=== PATIENT | female | born 1985 | race Caucasian/White ===

== ENCOUNTER → 2016-12-27 | Outpatient (CLI) | payer OTHER ==
[~2016-12-27] MED LIST: BACL20TA; BCP; CARI350T27 PO; CEPH500C PO; DICY10CA26 PO; HYDR-3583 PO; HYDR-3714 PO; HYDR1CAP2; Hydrocodone Bit/Acetaminophen PO; IBP600T1 PO; LORA1TAB PO; MTH.2T PO; NAPR-243 PO; OXYC-12 PO; PREN1TAB14 PO; PREN1TAB25 PO; PRM25T PO; SULF-222 PO; TRM50T PO; [UNRECOGNIZED DRUG - SUPPLY]
--- NOTE | 2016-12-27 14:00 | Diagnostic Imaging Report ---
EXAMINATION: Bilateral breast ultrasound. INDICATION: Bilateral nipple discharge. Left breast pain. FINDINGS: The four-quadrants and retroareolar region of each breast were scanned with no underlying abnormality seen except for minimal duct ectasia in the retroareolar regions bilaterally. IMPRESSION: Minimal retroareolar ductal ectasia bilaterally. No focal mass is identified. If the nipple discharge persists, consider cytology evaluation and an MRI of the breast. ACR BI-RADS Category 2: Benign findings. Dictated by: Dictated on workstation # [id number]
--- NOTE | 2016-12-27 18:03 | Diagnostic Imaging Report ---
Bilateral diagnostic mammogram. The current study was also evaluated with a Computer Aided Detection (CAD) system. INDICATION: Bilateral nipple discharge and left breast lateral pain. FINDINGS: The breasts are composed of heterogeneously dense parenchyma which may decrease mammographic sensitivity. There is no mass, architectural distortion, or suspicious cluster of calcifications identified. IMPRESSION: Dense breast parenchyma with no definite focal underlying lesion. Ultrasound evaluation pending. ACR BI-RADS Category 0: Incomplete. (Needs additional imaging evaluation). Result letter will be mailed to the patient. Note: At least 10% of breast cancer is not imaged by mammography. Dictated by: Dictated on workstation # [id number]
== END ==
LOC: RAD 07:49
PROVIDERS: ATTEND Family Medicine
DX: N64.52 Nipple discharge (principal)
CPT/HCPCS: 77066

== ENCOUNTER 2020-08-19 08:51 | Emergency (ER) | payer BC, OTHER ==
[~2020-08-19] VITALS: Ht 165 cm; Wt 67.2 kg
[2020-08-19] MEDS ORDERED: fentaNYL INJECTION 100 MCG/2 ML AMP IVP ONE ×3 (09:45→14:00)
[2020-08-19] MEDS ORDERED: ONDANSETRON 4 MG/2 ML (SDV) Z0FRAN IVP ONE (09:45)
--- NOTE | 2020-08-19 10:10 | ED Abdominal Pain ---
General Chief Complaint: Abdominal/GI Problems Stated Complaint: POSSIBLE APPENDICITIS Nursing Triage Note: AMB TO ROOM FROM [facility] WAS SEEN FOR R LOWER QUAD PAIN ONSET YESTERDAY. REPORTS HER URINE DOES SMELL BUT NOT HAVING ANY OTHER SYNPTOMS. Sepsis Screen: No Definite Risk Source of Information: Patient Exam Limitations: No Limitations (DANDY VOSS) History of Present Illness Date Seen by Provider: Aug 19, 2020 Time Seen by Provider: 09:41 Initial Comments Tamia is a 35 y/o female that presents to ER with lower abdominal pain that started around 1pm yesterday. The pain is currently a 7/10 with radiation to epigastric region and bilateral shoulders and is characterized as a dull ache. She describes burning sensation over the shoulders and scapula. She has ass ociated nausea without vomiting and a metal smell to her urine. She tried a suppository for constipation but states it did not help and only caused her to have some diarrhea. Eating, moving and riding in the car makes it worse. Laying in bed still with heating pad has helped. Last time the tried eating or drinking was at 8:30pm on 08/18/2020. She denies the following: F/C, vomiting, SOB, chest pain, dysuria, incomplete emptying of urine, hematuria, blood in stool, vaginal discharge, risky sexual behavior. Patient is currently on DEPO and has not had a period in 7 years. No hx of kidney stones or other known GI pathology. Timing/Duration: 1 Day Severity/Quality: Mild, Moderate Location: RLQ, LLQ, Periumbilical Radiation: Scapula, Shoulder Activities at Onset: None Modifying Factors: Worsens With Eating, Worsens With Movement, Worsens With Palpation Associated Symptoms: Nausea/Vomiting (without vomiting) (DANDY VOSS) Allergies and Home Medications Allergies Coded Allergies: NKANo Known Allergies (Unverified Allergy, Mild, 01/01/09) No Known Drug Allergies (Verified , 04/30/08) Home Medications Hydrocodone/Acetaminophen 1 Each Tablet, 1 TAB PO Q6H PRN for PAIN-BREAKTHROUGH Prescribed by: JOSE DAVID FREED on 08/19/20 2390 Metronidazole 500 Mg Tablet, 500 MG PO BID Prescribed by: JOSE DAVID FREED on 08/19/20 3775 Patient Home Medication List Home Medication List Reviewed: Yes (JOSE DAVID CARBONE MD) Review of Systems Review of Systems Constitutional: no symptoms reported EENTM: No Symptoms Reported Respiratory: No Symptoms Reported Cardiovascular: No Symptoms Reported Gastrointestinal: Abdomen Distended, Abdominal Pain, Nausea, Poor Appetite Genitourinary: Denies Burning, Denies Hematuria; Other (metallic smell) Musculoskeletal: back pain Skin: no symptoms reported Psychiatric/Neurological: No Symptoms Reported Endocrine: No Symptoms Reported Other Comments (DANDY VOSS) Past Xvppsyt-Aawfut-Bjtoez Hx Patient Social History Alcohol Use: Occasionally Uses Smoking Status: Current Someday Smoker Recent Infectious Disease Expo: No Recent Hopitalizations: Yes (DANDY VOSS) Immunizations Up To Date Tetanus Booster (TDap): Unknown PED Vaccines UTD: No Date of Influenza Vaccine: Apr 03, 2012 (DANDY VOSS) Seasonal Allergies Seasonal Allergies: No (DANDY VOSS) Past Medical History Surgeries: Yes (WISDOM TEETH, D&C X2) Adenoidectomy, Tonsillectomy Respiratory: No Cardiac: No Neurological: No Reproductive Disorders: No Sexually Transmitted Disease: Yes HIV/AIDS: No Kidney Infection Gastrointestinal: No Musculoskeletal: No Endocrine: No Cancer: No Psychosocial: Yes Anxiety Integumentary: No Eczema Blood Disorders: No Adverse Reaction/Blood Tranf: No (DANDY VOSS) Family Medical History No Pertinent Family Hx (DANDY VOSS) Physical Exam Vital Signs Vital Signs - First Documented 08/19/20 08/19/20 08:58 16:21 Temp 36.2 Pulse 68 Resp 18 B/P (MAP) 111/62 (78) Pulse Ox 99 O2 Delivery Room Air (JOSE DAVID CARBONE MD) Vital Signs Capillary Refill : Less Than 3 Seconds (DANDY VOSS MED KARLA) Height/Weight/BMI Height: 5'6" Weight: 130lbs. oz. 58.552913qb; 24.00 BMI Method:Stated General Appearance: mild distress HEENT: PERRL/EOMI Neck: non-tender, full range of motion Respiratory: chest non-tender, lungs clear, normal breath sounds, no respiratory distress, no accessory muscle use Cardiovascular: normal peripheral pulses, regular rate, rhythm, no edema Peripheral Pulses: 2+ Dorsalis Pedis (R), 2+ Left Dors-Pedis (L), 2+ Radial Pulses (R), 2+ Radial Pulses (L) Gastrointestinal: rebound (Right LQ), tenderness (RLQ and LLQ, RLQ>LLQ) Extremities: no pedal edema, no calf tenderness Back: normal inspection, no CVA tenderness Neurologic/Psychiatric: alert, normal mood/affect, oriented x 3 Skin: normal color, warm/dry Lymphatic: no adenopathy Exam Comments + mcburneys,+Rosving, pain reproduced with right hip flexion, (-) for Lloyds sign. (DANDY VOSS [facility]) Progress/Results/Core Measures Results/Orders Lab Results Laboratory Tests Test 08/19/20 10:19 08/19/20 11:17 08/19/20 13:53 Range/Units White Blood Count 5.7 4.3-11.0 10^3/uL Red Blood Count 4.47 3.80-5.11 10^6/uL Hemoglobin 14.4 11.5-16.0 g/dL Hematocrit 43 35-52 % Mean Corpuscular Volume 96 80-99 fL Mean Corpuscular Hemoglobin 32 25-34 pg Mean Corpuscular Hemoglobin Concent 34 32-36 g/dL Red Cell Distribution Width 11.5 10.0-14.5 % Platelet Count 222 130-400 10^3/uL Mean Platelet Volume 8.9 L 9.0-12.2 fL Immature Granulocyte % (Auto) 0 % Neutrophils (%) (Auto) 57 42-75 % Lymphocytes (%) (Auto) 30 12-44 % Monocytes (%) (Auto) 11 0-12 % Eosinophils (%) (Auto) 1 0-10 % Basophils (%) (Auto) 0 0-10 % Neutrophils # (Auto) 3.3 1.8-7.8 10^3/uL Lymphocytes # (Auto) 1.7 1.0-4.0 10^3/uL Monocytes # (Auto) 0.6 0.0-1.0 10^3/uL Eosinophils # (Auto) 0.1 0.0-0.3 10^3/uL Basophils # (Auto) 0.0 0.0-0.1 10^3/uL Immature Granulocyte # (Auto) 0.0 0.0-0.1 10^3/uL Sodium Level 141 135-145 MMOL/L Potassium Level 3.8 3.6-5.0 MMOL/L Chloride Level 107 98-107 MMOL/L Carbon Dioxide Level 22 21-32 MMOL/L Anion Gap 12 5-14 MMOL/L Blood Urea Nitrogen 9 7-18 MG/DL Creatinine 0.85 0.60-1.30 MG/DL Estimat Glomerular Filtration Rate > 60 BUN/Creatinine Ratio 11 Glucose Level 94 70-105 MG/DL Calcium Level 9.1 8.5-10.1 MG/DL Corrected Calcium 8.9 8.5-10.1 MG/DL Total Bilirubin 0.5 0.1-1.0 MG/DL Aspartate Amino Transf (AST/SGOT) 13 5-34 U/L Alanine Aminotransferase (ALT/SGPT) 16 0-55 U/L Alkaline Phosphatase 52 40-136 U/L C-Reactive Protein High Sensitivity 0.32 0.00-0.50 MG/DL Total Protein 7.1 6.4-8.2 GM/DL Albumin 4.3 3.2-4.5 GM/DL Lipase 37 8-78 U/L Serum Test, Qualitative NEGATIVE NEGATIVE Urine Color YELLOW Urine Clarity CLEAR Urine pH 5.5 5-9 Urine Specific Gustine >=1.030 1.016-1.022 Urine Protein NEGATIVE NEGATIVE Urine Glucose (UA) NEGATIVE NEGATIVE Urine Ketones NEGATIVE NEGATIVE Urine Nitrite NEGATIVE NEGATIVE Urine Bilirubin NEGATIVE NEGATIVE Urine Urobilinogen 0.2 < = 1.0 MG/DL Urine Leukocyte Esterase NEGATIVE NEGATIVE Urine RBC (Auto) TRACE-I NEGATIVE Urine RBC 2-5 H /HPF Urine WBC 0-2 /HPF Urine Squamous Epithelial Cells 25-50 H /HPF Urine Crystals PRESENT H /LPF Urine Amorphous Sediment MOD ROBINSON URATES H /LPF Urine Bacteria MODERATE H /HPF Urine Casts NONE /LPF Urine Mucus SMALL H /LPF Urine Culture Indicated NO (JOSE DAVID CARBONE MD) Micro Results Microbiology 08/19/20 Genital Culture, Resulted Pending 08/19/20 Wet Prep - Final, Resulted (JOSE DAVID CARBONE MD) My Orders Orders - JOSE DAVID CARBONE MD Cbc With Automated Diff (08/19/20 09:33) Comprehensive Metabolic Panel (08/19/20 09:33) Hs C Reactive Protein (08/19/20 09:33) Hcg,Qualitative Serum (08/19/20 09:33) Lipase (08/19/20 09:33) Ua Culture If Indicated (08/19/20 09:33) Ed Iv/Invasive Line Start (08/19/20 09:33) Ondansetron Injection (Zofran Injectio (08/19/20 09:45) Fentanyl Injection (Sublimaze Injection (08/19/20 09:45) Fentanyl Injection (Sublimaze Injection (08/19/20 11:45) Ct Abd/Pelv W (Appendicitis) (08/19/20 11:41) Iohexol Injection (Omnipaque 350 Mg/Ml 1 (08/19/20 12:00) Received Contrast (Hold Metformin- Contr (08/19/20 12:00) Ns (Ivpb) (Sodium Chloride 0.9% Ivpb Bag (08/19/20 12:00) Sodium Chloride Flush (Catheter Flush Sy (08/19/20 12:00) Wet Prep (08/19/20 13:23) Neisseria Gonorrhea Swab (08/19/20 13:23) Genital Culture (08/19/20 13:23) Chlamydia Trachomatis Swab (08/19/20 13:23) Us Non Ob Pelvis Comp/Transvag (08/19/20 13:23) Fentanyl Injection (Sublimaze Injection (08/19/20 14:00) Fentanyl Injection (Sublimaze Injection (08/19/20 13:51) Ceftriaxone For Iv Use (Rocephin For I (08/19/20 15:45) Azithromycin Tablet (Zithromax Tablet) (08/19/20 15:45) Ketorolac Injection (Toradol Injection) (08/19/20 15:45) (JOSE DAVID CARBONE MD) Medications Given in ED Current Medications Medications Dose Ordered Sig/Conner Route Start Time Stop Time Status Last Admin Dose Admin Azithromycin 1,000 mg ONCE ONCE PO 08/19/20 15:45 08/19/20 15:46 DC 08/19/20 15:48 1,000 MG Ceftriaxone Sodium 1000 mg/ Sterile Water 10 ml @ 200 mls/hr ONCE ONCE IV 08/19/20 15:45 08/19/20 15:47 DC 08/19/20 15:50 200 MLS/HR Fentanyl Citrate 50 mcg ONCE ONCE IVP 08/19/20 09:45 08/19/20 09:46 DC 08/19/20 10:16 50 MCG Fentanyl Citrate 50 mcg ONCE ONCE IVP 08/19/20 11:45 08/19/20 11:46 DC 08/19/20 11:44 50 MCG Fentanyl Citrate 50 mcg ONCE ONCE IVP 08/19/20 14:00 08/19/20 14:01 DC 08/19/20 13:57 50 MCG Iohexol 100 ml ONCE ONCE IV 08/19/20 12:00 08/19/20 12:01 DC 08/19/20 12:11 84 ML Ketorolac Tromethamine 15 mg ONCE ONCE IVP 08/19/20 15:45 08/19/20 15:46 DC 08/19/20 15:49 15 MG Ondansetron HCl 8 mg ONCE ONCE IVP 08/19/20 09:45 08/19/20 09:46 DC 08/19/20 10:14 8 MG Sodium Chloride 10 ml NEEDED PRN IV 08/19/20 12:00 08/19/20 16:23 DC 08/19/20 12:11 10 ML Sodium Chloride 100 ml ONCE ONCE IV 08/19/20 12:00 08/19/20 12:01 RI 08/19/20 12:11 80 ML (JOSE DAVID CARBONE MD) Vital Signs/I&O 08/19/20 08/19/20 08:58 16:21 Temp 36.2 Pulse 68 77 Resp 18 18 B/P (MAP) 111/62 (78) 113/76 Pulse Ox 99 99 O2 Delivery Room Air (JOSE DAVID CARBONE MD) Blood Pressure Mean: 78 Progress Progress Note #1: Time: 09:44 Progress Note Discussed plan with patient: Ordered CBC with Diff, CMP, Lipase, B-HCG, UA. Waiting for results to guide additional workup. Ordered pain medication and Zofran for nausea. Discussed obtaining CT pending B-HCG. Patient is agreement with plan. Progress Note #2: Time: 11:15 Progress Note CBC and CMP unremarkable, B-HCG negative. Patient is tolerating pain better and nausea under control. Waiting on UA results. Progress Note #3: Time: 13:20 Progress Note UA negative. The CT was not concerning for acute appendicitis. CT was unable to elucidate ovary pathology, recommended U/S to further workup ovary pathology. Additionally, discussed fluid in pelvis and potential for IBD. Discussed the risk, benefits and alternatives in performing U/S and pelvic exam to rule out PID. She showed understanding and would like to proceed. Progress Note #4: Time: 13:55 Progress Note Pelvic exam performed in the presence of Tom Shant. External genitalia showed no abrasions, ulcers or growths. Labia majora and minora was inspected and showed no abnormalities. The vaginal introitus was entered, no abrasions, ulcers or discharge noted. There was no vaginal wall tenderness or erythema present. Healthy vaginal rugae noted. Cervix was examined and did not have abrasions or ulcers. White discharge was present in the posterior fornix which seemed physiologic in nature. Cotton tip applicator was introduced for culture collection. While sweeping cervix no tenderness was noted. Upon withdrawal of speculum no tenderness was noted. Digital vaginal exam was then performed, which showed no cervical motion tenderness. (DANDY VOSS [facility]) Diagnostic Imaging Diagonstic Imaging: Ultrasound Plain Films/CT/US/NM/MRI: pelvis Comments Ultrasound discussed with the alignment technician and Dr. Dickey. Report reviewed. See report below: NAME: TAMIA ACHARYA [facility] REC#: [id number] PT STATUS: REG ER : 1985 PHYSICIAN: JOSE DAVID CARBONE MD ADMIT DATE: 08/19/20/ER Signed Date of Exam:08/19/20 US NON OB PELVIS COMP/TRANSVAG PROCEDURE: Pelvic complete, transabdominal and transvaginal sonogram. Limited pelvic doppler. TECHNIQUE: Multiple real-time grayscale images were obtained of the pelvis in various projections transabdominally and transvaginally. Limited pelvic duplex images were obtained. HISTORY: Pelvic pain, Free fluid in pelvis on CT COMPARISON: None available. FINDINGS: Uterus: The uterus is anteverted and measures 5.5 x 2.7 x 3.8 cm. The myometrium is homogeneous without fibroids. Endometrium: The endometrium is normal in thickness and measures 0.2 cm. There is no fluid within the endometrial cavity. Adnexa: Both ovaries have a normal physiologic appearance. The right ovary measures 3.0 x 1.4 x 2.4 cm and the left ovary measures 2.3 x 1.8 x 2.1 cm. Duplex images reveal normal vascular flow to both ovaries. Other: There is no free fluid within the pelvis. Small bowel within the right lower quadrant with mild wall thickening, similar to prior CT from 08/19/2020. IMPRESSION: 1. Unremarkable pelvic ultrasound. Dictated by: Dictated on workstation # [id number] Dict: 08/19/20 1519 Trans: 08/19/20 1525 AS6 [id number] Interpreted by: ARYAN RAMIREZ DO Electronically signed by: ARYAN RAMIREZ DO 08/19/20 1525 Diagonstic Imaging: CT Plain Films/CT/US/NM/MRI: abdomen, pelvis Comments CT abdomen and pelvis viewed by me and report reviewed. Discussed with Dr. Dickey. See report below: NAME: TAMIA ACHARYA [facility] REC#: [id number] PT STATUS: REG ER : 1985 PHYSICIAN: JOSE DAVID CARBONE MD ADMIT DATE: 08/19/20/ER Signed Date of Exam:08/19/20 US NON OB PELVIS COMP/TRANSVAG PROCEDURE: Pelvic complete, transabdominal and transvaginal sonogram. Limited pelvic doppler. TECHNIQUE: Multiple real-time grayscale images were obtained of the pelvis in various projections transabdominally and transvaginally. Limited pelvic duplex images were obtained. HISTORY: Pelvic pain, Free fluid in pelvis on CT COMPARISON: None available. FINDINGS: Uterus: The uterus is anteverted and measures 5.5 x 2.7 x 3.8 cm. The myometrium is homogeneous without fibroids. Endometrium: The endometrium is normal in thickness and measures 0.2 cm. There is no fluid within the endometrial cavity. Adnexa: Both ovaries have a normal physiologic appearance. The right ovary measures 3.0 x 1.4 x 2.4 cm and the left ovary measures 2.3 x 1.8 x 2.1 cm. Duplex images reveal normal vascular flow to both ovaries. Other: There is no free fluid within the pelvis. Small bowel within the right lower quadrant with mild wall thickening, similar to prior CT from 08/19/2020. IMPRESSION: 1. Unremarkable pelvic ultrasound. Dictated by: Dictated on workstation # [id number] Dict: 08/19/20 1519 Trans: 08/19/20 1525 AS6 [id number] Interpreted by: ARYAN RAMIREZ DO Electronically signed by: ARYAN RAMIREZ DO 08/19/20 1525 (JOSE DAVID CARBONE MD) Departure Impression Primary Impression: Pelvic pain Additional Impressions: Free fluid in pelvis Bacterial vaginosis Disposition: HOME, SELF-CARE Condition: Improved Departure-Patient Inst. Decision time for Depature: 15:48 (JOSE DAVID CARBONE MD) Referrals: [facility] (PCP/Family) Primary Care Physician Patient Instructions: Bacterial Vaginosis, Pelvic Pain (DC) Add. Discharge Instructions: For pain you may take ibuprofen up to 600 mg every 6 hours as needed. If ibuprofen irritates her stomach, discontinue its use. For pain not controlled by ibuprofen take hydrocodone as prescribed. For upper abdominal pain you may try an antacid medication such as Pepcid (famotidine) 20 mg twice daily or omeprazole 20 mg twice daily. These are available [id number]. If you start an antacid medication, take it for at least 2 weeks to allow your stomach and opportunity to heal. Avoid food and drink that irritate your stomach. There was some evidence of bacterial vaginosis (bacterial overgrowth) on your vaginal swab. Take Flagyl (metronidazole) as prescribed for treatment of this. Do not drink alcohol while taking Flagyl. Follow-up with Dr. Enrique is soon as possible. Report to the findings of CT scan and ultrasound with him in follow-up. Also follow-up with your women's health provider. Based on your symptoms and imaging results, it may be appropriate to seek referral to a dispensing and measuring optician or general surgeon for further evaluation. Call with questions or concerns. Return to the emergency room for worsening symptoms or development of new symptoms such as fever. All discharge instructions reviewed with patient and/or family. Voiced understanding. Scripts Hydrocodone/Acetaminophen (Hydrocodone-Acetamin 5-325 mg) 1 Each Tablet 1 TAB PO Q6H PRN for PAIN-BREAKTHROUGH, #10 TAB Prov: JOSE DAVID CARBONE MD 08/19/20 Metronidazole (Flagyl) 500 Mg Tablet 500 MG PO BID, #14 TAB Prov: JOSE DAVID CARBONE MD 08/19/20 Work/School Note: Work Release Form Date Seen in the Emergency Department: Aug 19, 2020 Return to Work: Aug 21, 2020 Restrictions: No Restrictions Medical Student Attestation and Attending Note: I have personally interviewed and examined this patient along with Dandy Arguello, MS 4. I have reviewed student documentation including history, physical, and assessments. I agree with the documentation except where otherwise noted. This patient's case was a little bit complicated. Exam was suspicious for appendicitis with peritoneal signs. Risks and benefits of CT were discussed with the patient. She elected to proceed with CT. No appendicitis was identified but there was free fluid in the right posterior pelvis. The exact cause of this was uncertain. There was associated inflammatory change of the ileum. Patient did describe a history of worsening symptoms with eating. There is Crohn's disease in multiple family members. She also reports a relative intolerance to grain products. I advised that she follow-up with her dietitian research and possibly a dispensing and measuring optician or a general surgeon. Pelvic exam was performed and there was a significant quantity of white blood cells on the preliminary swab. For this reason she was empirically treated with Rocephin and azithromycin. She reports having STI screening about a month ago after becoming sexually active with a new partner. She denies any new partner since then. Pain was treated with fentanyl. Medications were prescribed. Clue cells were present on the pelvic exam prompting treatment with Flagyl for bacterial vaginosis. Definitive diagnosis was not determined today at the importance of follow-up was stressed to the patient. Exam: General: Alert, oriented, no acute distress, well developed HEENT: Normocephalic and atraumatic Heart: Regular rate and rhythm without murmur Lungs: Clear to auscultation bilaterally with normal effort Abdomen: Soft, Tenderness in the lower quadrants, right greater than left. Positive Rovsing and tenderness to percussion. nondistended, normal bowel sounds Pelvic: Normal external genitalia. Large amount of white discharge, physiologic in appearance. No inflammatory changes to the vaginal wall or cervix. No cervical motion tenderness On digital exam. Neuropsych: Alert, oriented, no focal deficits Skin: Warm and dry without rashes (JOSE DAVID CARBONE MD) Copy Copies To 1: DEBRA GARVIN BRANDON [facility] Aug 19, 2020 10:10 JOSE DAVID CARBONE MD Aug 19, 2020 15:53
[2020-08-19 10:28] LABS: BASOPHILS % (AUTO) 0 % (0-10); EOSINOPHILS # (AUTO) 0.1 10^3/uL (0.0-0.3); EOSINOPHILS % (AUTO) 1 % (0-10); HEMATOCRIT 43 % (35-52); HEMOGLOBIN 14.4 g/dL (11.5-16.0); LYMPHOCYTES # (AUTO) 1.7 10^3/uL (1.0-4.0); LYMPHOCYTES % (AUTO) 30 % (12-44); MEAN CORPUSCULAR HEMOGLOBIN 32 pg (25-34); MEAN CORPUSCULAR HGB CONC 34 g/dL (32-36); MEAN CORPUSCULAR VOLUME 96 fL (80-99); MEAN PLATELET VOLUME 8.9 fL (9.0-12.2); MONOCYTES # (AUTO) 0.6 10^3/uL (0.0-1.0); MONOCYTES % (AUTO) 11 % (0-12); NEUTROPHILS # (AUTO) 3.3 10^3/uL (1.8-7.8); NEUTROPHILS % (AUTO) 57 % (42-75); PLATELET COUNT 222 10^3/uL (130-400); WHITE BLOOD COUNT 5.7 10^3/uL (4.3-11.0)
[2020-08-19 10:42] LABS: ALBUMIN 4.3 GM/DL (3.2-4.5); CHLORIDE 107 MMOL/L (98-107); POTASSIUM 3.8 MMOL/L (3.6-5.0); SODIUM 141 MMOL/L (135-145)
[2020-08-19 10:43] LABS: CALCIUM 9.1 MG/DL (8.5-10.1)
[2020-08-19 10:44] LABS: GLUCOSE 94 MG/DL (70-105)
[2020-08-19 10:45] LABS: TOTAL PROTEIN 7.1 GM/DL (6.4-8.2)
[2020-08-19 10:46] LABS: BILIRUBIN,TOTAL 0.5 MG/DL (0.1-1.0); CARBON DIOXIDE 22 MMOL/L (21-32)
[2020-08-19 10:48] LABS: ALKALINE PHOSPHATASE 52 U/L (40-136); CREATININE SERUM 0.85 MG/DL (0.60-1.30); GFR ESTIMATED > 60
[2020-08-19 10:49] LABS: BUN/CREATININE RATIO 11
[2020-08-19 10:51] LABS: ALANINE AMINOTRANSFERASE 16 U/L (0-55); LIPASE 37 U/L (8-78)
[2020-08-19 11:23] LABS: BILIRUBIN,URINE NEGATIVE (NEGATIVE); CLARITY,URINE CLEAR; COLOR,URINE YELLOW; GLUCOSE, URINE (UA) NEGATIVE (NEGATIVE); KETONES,URINE NEGATIVE (NEGATIVE); LEUKOCYTE ESTERASE ,URINE NEGATIVE (NEGATIVE); NITRITE,URINE NEGATIVE (NEGATIVE); PH,URINE 5.5 (5-9); PROTEIN,URINE NEGATIVE (NEGATIVE)
[2020-08-19 11:31] LABS: BACTERIA,URINE MODERATE /HPF; SQUAMOUS EPITHELIAL CELL,UR 25-50 /HPF; WBC,URINE 0-2 /HPF
[2020-08-19 11:32] LABS: AMORPHOUS SEDIMENT,UR MOD AMOR URATES /LPF
[2020-08-19] MEDS ORDERED: IOHEXOL 350 MG/ML 100 ML (OMNIPAQUE 350) VIAL IV ONE (12:00)
[2020-08-19] MEDS ORDERED: CATHETER FLUSH 10 ML SYR IV PRN (12:00)
[2020-08-19] MEDS ORDERED: HOLD METFORMIN - RECEIVED CONTRAST 20 ML VIAL IV SCH (12:00)
[2020-08-19] MEDS ORDERED: NS 100 ML (IVPB) BAG IV ONE (12:00)
--- NOTE | 2020-08-19 12:50 | Diagnostic Imaging Report ---
PROCEDURE: CT abdomen and pelvis with contrast, rule out appendicitis. TECHNIQUE: Multiple contiguous axial images were obtained through the abdomen and pelvis after the administration of intravenous contrast. All CT scans use one or more of the following dose optimizing techniques: automated exposure control, MA and/or KvP adjustment based on patient size and exam type or iterative reconstruction. INDICATION: Right lower quadrant pain, nausea. COMPARISON: Abdominal pelvic CT 02/15/2007 Structure believed to reflect the normal appendix medial to the right iliac vein is present. No adjacent edema. No findings of appendicitis. There is however some circumferential thickening of the lauren of the distal small bowel through the level of the terminal ileum in the right lower quadrant. This could be reflux ileitis, on an infectious basis or reflect changes of inflammatory bowel disease. No obstruction, perforation or abscess. There is a small volume pelvic free fluid of the cul-de-sac. The liver, gallbladder, bile ducts, spleen, adrenals, pancreas and unobstructed kidneys appeared normal. No pathological fecal loading. The urinary bladder is nearly empty. No adnexal lesion. The uterus unremarkable. IMPRESSION: No findings to suggest appendicitis. Nonfocal unobstructed urinary tracts with no hepatobiliary abnormality. Small volume pelvic free fluid may be physiologic. New thickening of the lauren of the distal ileum in the right lower quadrant may be from reflux ileitis on an infectious basis or reflect inflammatory bowel disease. No other segmental enteric inflammatory changes are found. No perforation, obstruction or abscess. Dictated by: Dictated on workstation # [id number]
[2020-08-19] MEDS ORDERED: fentaNYL INJECTION 100 MCG/2 ML AMP ONE (13:51)
--- NOTE | 2020-08-19 15:25 | Diagnostic Imaging Report ---
PROCEDURE: Pelvic complete, transabdominal and transvaginal sonogram. Limited pelvic doppler. TECHNIQUE: Multiple real-time grayscale images were obtained of the pelvis in various projections transabdominally and transvaginally. Limited pelvic duplex images were obtained. HISTORY: Pelvic pain, Free fluid in pelvis on CT COMPARISON: None available. FINDINGS: Uterus: The uterus is anteverted and measures 5.5 x 2.7 x 3.8 cm. The myometrium is homogeneous without fibroids. Endometrium: The endometrium is normal in thickness and measures 0.2 cm. There is no fluid within the endometrial cavity. Adnexa: Both ovaries have a normal physiologic appearance. The right ovary measures 3.0 x 1.4 x 2.4 cm and the left ovary measures 2.3 x 1.8 x 2.1 cm. Duplex images reveal normal vascular flow to both ovaries. Other: There is no free fluid within the pelvis. Small bowel within the right lower quadrant with mild wall thickening, similar to prior CT from 08/19/2020. IMPRESSION: 1. Unremarkable pelvic ultrasound. Dictated by: Dictated on workstation # [id number]
[2020-08-19] MEDS ORDERED: AZITHROMYCIN 250 MG TAB (ZITHROMAX) PO ONE (15:45)
[2020-08-19] MEDS ORDERED: cefTRIAXone FOR IV USE 1,000 MG in WATER (STERILE) FOR INJECTION 10 ML IV ONE (15:45)
[2020-08-19] MEDS ORDERED: KETOROLAC 30 MG/ML VIAL IVP ONE (15:45)
[2020-08-19] MEDS ORDERED: METR500T PO (15:53)
[2020-08-19] MEDS ORDERED: ACHD5005 PO (15:53)
[2020-08-19 16:21] VITALS: BP 113/76
== END 2020-08-19 16:22 | disposition home or self-care (01) ==
LOC: EDUNIT# 08:51 → ER 08:52
DX: N76.0 Acute vaginitis (principal); R18.8 Other ascites
CPT/HCPCS: 36415; 74177; 76830; 76856; 80053; 81000; 83690; 84703; 85025; 86141; 87070; 87205; 87210; 87491; 87591

== ENCOUNTER → 2021-04-01 | Outpatient (CLI) | payer BC ==
[~2021-04-01] MED LIST changes: +ACHD5005 PO; +METR500T PO
--- NOTE | 2021-04-01 08:33 | Diagnostic Imaging Report ---
PROCEDURE: CT abdomen and pelvis without contrast. TECHNIQUE: Multiple contiguous axial images were obtained through the abdomen and pelvis without the use of intravenous contrast. Auto Exposure Controls were utilized during the CT exam to meet ALARA standards for radiation dose reduction. INDICATION: Right-sided flank pain and urinary tract infections. Correlation is made with prior CT from 08/19/2020. The lung bases are clear. The liver is unremarkable. Gallbladder is contracted. No biliary duct dilatation is seen. Pancreas and spleen are unremarkable. No adrenal masses detected. No renal calculi are identified. Bladder is unremarkable. No definite bladder calculi are seen. There is no hydronephrosis. Aorta is non-aneurysmal. Bowel loops are normal caliber. There is no obstruction. No free fluid or fluid collection is seen. Uterus is unremarkable. Bony structures are unremarkable. IMPRESSION: Unremarkable noncontrast CT of the abdomen and pelvis. No urinary tract calculi or obstruction is identified. Dictated by: Dictated on workstation # [id number]
== END ==
LOC: RAD 07:48
PROVIDERS: ATTEND Nurse Practitioner Family
DX: N39.0 Urinary tract infection, site not specified (principal)
CPT/HCPCS: 74176

== ENCOUNTER 2022-05-19 10:17 | Emergency (ER) | payer BC, OTHER ==
[~2022-05-19] VITALS: Ht 167.7 cm; Wt 72.5 kg
[2022-05-19 10:55] LABS: BASOPHILS % (AUTO) 0 % (0-10); EOSINOPHILS % (AUTO) 1 % (0-10); HEMATOCRIT 46 % (35-52); HEMOGLOBIN 15.7 g/dL (11.5-16.0); LYMPHOCYTES # (AUTO) 1.9 10^3/uL (1.0-4.0); LYMPHOCYTES % (AUTO) 26 % (12-44); MEAN CORPUSCULAR HEMOGLOBIN 32 pg (25-34); MEAN CORPUSCULAR HGB CONC 34 g/dL (32-36); MEAN CORPUSCULAR VOLUME 94 fL (80-99); MEAN PLATELET VOLUME 8.9 fL (9.0-12.2); MONOCYTES # (AUTO) 0.6 10^3/uL (0.0-1.0); MONOCYTES % (AUTO) 8 % (0-12); NEUTROPHILS # (AUTO) 4.9 10^3/uL (1.8-7.8); NEUTROPHILS % (AUTO) 65 % (42-75); PLATELET COUNT 240 10^3/uL (130-400); WHITE BLOOD COUNT 7.5 10^3/uL (4.3-11.0)
[2022-05-19 11:01] LABS: PROTHROMBIN TIME PATIENT 13.2 SEC (12.2-14.7)
[2022-05-19 11:02] LABS: ALBUMIN 4.5 GM/DL (3.2-4.5); POTASSIUM 3.7 MMOL/L (3.6-5.0)
[2022-05-19 11:04] LABS: CALCIUM 9.5 MG/DL (8.5-10.1)
[2022-05-19 11:05] LABS: TOTAL PROTEIN 7.3 GM/DL (6.4-8.2)
[2022-05-19 11:07] LABS: BILIRUBIN,TOTAL 0.7 MG/DL (0.1-1.0)
[2022-05-19 11:08] LABS: CREATININE SERUM 0.82 MG/DL (0.60-1.30)
[2022-05-19 11:11] LABS: MAGNESIUM 1.9 MG/DL (1.6-2.4)
[2022-05-19] MEDS ORDERED: ANTACID SUSP 30 ML UDC (MYLANTA) PO ONE (11:30)
[2022-05-19] MEDS ORDERED: ONDANSETRON 4 MG/2 ML (SDV) Z0FRAN IVP ONE ×2 (11:30→12:45)
[2022-05-19] MEDS ORDERED: LIDOCAINE 2% VISCOUS 15 ML UDC PO ONE (11:30)
--- NOTE | 2022-05-19 11:43 | Diagnostic Imaging Report ---
CHEST 1 VIEW, AP/PA ONLY Indication: Chest pain. Comparison: 07/01/2012 Findings: No focal airspace disease in the visualized lungs. No pleural effusion or pneumothorax. Normal cardiomediastinal silhouette. Impression: 1. No acute cardiopulmonary process by portable radiography. Dictated by: Dictated on workstation # [id number]
[2022-05-19] MEDS ORDERED: QUET25TA PO (13:23)
--- NOTE | 2022-05-19 13:26 | ED Chest Pain ---
General Chief Complaint: Chest Pain Stated Complaint: CHEST PAINS Nursing Triage Note: STATES SHE IS FEELING CHEST PAIN INTERMITTANTLY SINCE YESTERDAY MORNING. NOW IS CONSTANT WITH RATING OF A 6/10. Source: patient Exam Limitations: no limitations History of Present Illness Date Seen by Provider: May 19, 2022 Time Seen by Provider: 10:21 Initial Comments This 36-year-old woman presents to the emergency room with complaints of palpitations, anxiety, and chest discomfort. She has slept very poorly over the past 2 days and feels very thirsty. She describes her chest discomfort as a tightness or sometimes a dull tingling. It radiates into her left arm. The sensation was more heavy this morning. She has had panic attacks in the past but reports that this feels different than a panic attack. She also describes a sensation of a knot in her throat. Her palpitations feel like a flipping sensation intermittently. She denies any recent medication additions or changes. She is not presently treated for anxiety. She denies as she had a Depo-Provera shot yesterday and had a negative test at that time. She was seen in the clinic today and had a negative COVID-19 test. She p resently rates her pain as 5/10. She has had a loss of appetite. Pain does not change with eating or drinking. Her primary care provider is Mena Marshall at [facility]. Allergies and Home Medications Allergies Coded Allergies: NKANo Known Allergies (Unverified Allergy, Mild, 01/01/09) No Known Drug Allergies (Verified , 04/30/08) Patient Home Medication List Home Medication List Reviewed: Yes Hydrocodone/Acetaminophen (Hydrocodone-Acetamin 5-325 mg) 1 Each Tablet, 1 TAB PO Q6H PRN for PAIN-BREAKTHROUGH Prescribed by: JOSE DAVID FREED on 08/19/20 1554 Metronidazole (Flagyl) 500 Mg Tablet, 500 MG PO BID Prescribed by: JOSE DAVID FREED on 08/19/20 1553 Quetiapine Fumarate (Seroquel) 25 Mg Tablet, 25 MG PO HS Prescribed by: JOSE DAVID FREED on 05/19/22 1323 Review of Systems Review of Systems Constitutional: see HPI EENTM: No Symptoms Reported Respiratory: See HPI Cardiovascular: See HPI Gastrointestinal: No Symptoms Reported Genitourinary: No Symptoms Reported Musculoskeletal: muscle stiffness Skin: no symptoms reported Psychiatric/Neurological: See HPI Endocrine: No Symptoms Reported Hematologic/Lymphatic: No Symptoms Reported Past Cisxtcr-Gznzoq-Cdjjky Hx Patient Social History Tobacco Use?: Yes Tobacco type used: Cigarettes Smoking Status: Current Everyday Smoker Use of E-Cig and/or Vaping dev: No Substance use?: No Alcohol Use?: Yes Alcohol type: Beer, Hard Liquor, Wine Alcohol Frequency: Once in a while Immunizations Up To Date Tetanus Booster (TDap): Unknown PED Vaccines UTD: No Influenza Vaccine Up-to-Date: No; Not Current First/Initial COVID19 Vaccinat: 2020 Second COVID19 Vaccination Ervin: 2020 Seasonal Allergies Seasonal Allergies: No Past Medical History Surgery/Hospitalization HX: ANXIETY SURGERY WISDOM TEETH , TONSILS, D&C Surgeries: Yes (WISDOM TEETH, D&C X2) Adenoidectomy, Tonsillectomy Respiratory: No Cardiac: No Neurological: No Reproductive Disorders: No Sexually Transmitted Disease: Yes HIV/AIDS: No Kidney Infection Gastrointestinal: No Musculoskeletal: No Endocrine: No Cancer: No Psychosocial: Yes Anxiety Integumentary: No Eczema Blood Disorders: No Adverse Reaction/Blood Tranf: No Family Medical History No Pertinent Family Hx Physical Exam Vital Signs Vital Signs - First Documented 05/19/22 10:20 Temp 36.6 Pulse 71 Resp 18 B/P (MAP) 128/88 (101) Pulse Ox 100 O2 Delivery Room Air Capillary Refill : Less Than 3 Seconds Height, Weight, BMI Height: 5'6" Weight: 130lbs. oz. 58.331248rr; 25.00 BMI Method:Stated General Appearance: WD/WN, Anxious, Mild Distress (Emotional) HEENT: PERRL/EOMI, Normal ENT Inspection Neck: Normal Inspection; No JVD; Other (Muscle tension and tenderness in the left paraspinous muscles and trapezius muscles) Respiratory: Lungs Clear, Normal Breath Sounds, No Accessory Muscle Use, Other (Left upper anterior chest tender to palpation) Cardiovascular: Regular Rate, Rhythm, No Edema, No Murmur Gastrointestinal: Normal Bowel Sounds, Non Tender, Soft Extremity: Normal Inspection, No Pedal Edema Neurologic/Psychiatric: Alert, Oriented x3, No Motor/Sensory Deficits, Normal Mood/Affect, 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 II-XII Norm as Tested Skin: Normal Color, Warm/Dry Progress/Results/Core Measures Results/Orders Lab Results Laboratory Tests Test 05/19/22 10:25 Range/Units White Blood Count 7.5 4.3-11.0 10^3/uL Red Blood Count 4.91 3.80-5.11 10^6/uL Hemoglobin 15.7 11.5-16.0 g/dL Hematocrit 46 35-52 % Mean Corpuscular Volume 94 80-99 fL Mean Corpuscular Hemoglobin 32 25-34 pg Mean Corpuscular Hemoglobin Concent 34 32-36 g/dL Red Cell Distribution Width 11.7 10.0-14.5 % Platelet Count 240 130-400 10^3/uL Mean Platelet Volume 8.9 L 9.0-12.2 fL Immature Granulocyte % (Auto) 0 % Neutrophils (%) (Auto) 65 42-75 % Lymphocytes (%) (Auto) 26 12-44 % Monocytes (%) (Auto) 8 0-12 % Eosinophils (%) (Auto) 1 0-10 % Basophils (%) (Auto) 0 0-10 % Neutrophils # (Auto) 4.9 1.8-7.8 10^3/uL Lymphocytes # (Auto) 1.9 1.0-4.0 10^3/uL Monocytes # (Auto) 0.6 0.0-1.0 10^3/uL Eosinophils # (Auto) 0.0 0.0-0.3 10^3/uL Basophils # (Auto) 0.0 0.0-0.1 10^3/uL Immature Granulocyte # (Auto) 0.0 0.0-0.1 10^3/uL Prothrombin Time 13.2 12.2-14.7 SEC INR Comment 1.0 0.8-1.4 Activated Partial Thromboplast Time 26 24-35 SEC Sodium Level 138 135-145 MMOL/L Potassium Level 3.7 3.6-5.0 MMOL/L Chloride Level 105 98-107 MMOL/L Carbon Dioxide Level 22 21-32 MMOL/L Anion Gap 11 5-14 MMOL/L Blood Urea Nitrogen 10 7-18 MG/DL Creatinine 0.82 0.60-1.30 MG/DL Estimat Glomerular Filtration Rate 94 BUN/Creatinine Ratio 12 Glucose Level 93 70-105 MG/DL Calcium Level 9.5 8.5-10.1 MG/DL Corrected Calcium 9.1 8.5-10.1 MG/DL Magnesium Level 1.9 1.6-2.4 MG/DL Total Bilirubin 0.7 0.1-1.0 MG/DL Aspartate Amino Transf (AST/SGOT) 17 5-34 U/L Alanine Aminotransferase (ALT/SGPT) 22 0-55 U/L Alkaline Phosphatase 49 40-136 U/L Myoglobin 39.6 10.0-92.0 NG/ML Troponin I < 0.028 <0.028 NG/ML Total Protein 7.3 6.4-8.2 GM/DL Albumin 4.5 3.2-4.5 GM/DL TSH [place] Testing 1.34 0.35-4.94 UIU/ML Serum Test, Qualitative NEGATIVE NEGATIVE My Orders Orders - JOSE DAVID CARBONE MD Ekg Tracing (05/19/22 10:20) Cbc With Automated Diff (05/19/22 10:49) Magnesium (05/19/22 10:49) Chest 1 View, Ap/Pa Only (05/19/22 10:49) Comprehensive Metabolic Panel (05/19/22 10:49) Myoglobin Serum (05/19/22 10:49) Protime With Inr (05/19/22 10:49) Partial Thromboplastin Time (05/19/22 10:49) O2 (05/19/22 10:49) Monitor-Rhythm Ecg Trace Only (05/19/22 10:49) Ed Iv/Invasive Line Start (05/19/22 10:49) Troponin I [place] (05/19/22 10:49) Hcg,Qualitative Serum (05/19/22 11:28) Thyroid Analyzer (05/19/22 11:29) Ondansetron Injection (Zofran Injectio (05/19/22 11:30) Lidocaine 2% Viscous 15 Ml (Xylocaine Vi (05/19/22 11:30) Antacid Suspension (Mylanta Suspension (05/19/22 11:30) Ondansetron Injection (Zofran Injectio (05/19/22 12:45) Orphenadrine Inj (Ed Only) (Norflex Inje (05/19/22 13:30) Ketorolac Injection (Toradol Injection) (05/19/22 13:30) Medications Given in ED Current Medications Medications Dose Ordered Sig/Conner Route Start Time Stop Time Status Last Admin Dose Admin Al Hydrox/Mg Hydrox/Simethicone 30 ml ONCE ONCE PO 05/19/22 11:30 05/19/22 11:31 DC 05/19/22 11:37 30 ML Ketorolac Tromethamine 30 mg ONCE ONCE IVP 05/19/22 13:30 05/19/22 13:31 DC 05/19/22 13:39 30 MG Lidocaine HCl 15 ml ONCE ONCE PO 05/19/22 11:30 05/19/22 11:31 DC 05/19/22 11:37 15 ML Ondansetron HCl 4 mg ONCE ONCE IVP 05/19/22 11:30 05/19/22 11:31 DC 05/19/22 11:37 4 MG Ondansetron HCl 4 mg ONCE ONCE IVP 05/19/22 12:45 05/19/22 12:46 DC 05/19/22 12:43 4 MG Orphenadrine Citrate 60 mg ONCE ONCE IV 05/19/22 13:30 05/19/22 13:31 DC 05/19/22 13:37 60 MG Vital Signs/I&O 05/19/22 05/19/22 10:20 14:46 Temp 36.6 36.6 Pulse 71 70 Resp 18 18 B/P (MAP) 128/88 (101) 85/88 Pulse Ox 100 100 O2 Delivery Room Air Room Air Blood Pressure Mean: 101 Progress Progress Note : Progress Note Work-up was unremarkable. GI cocktail did not resolve her pain. Toradol and Norflex did significantly improve her pain. She appears to have a significant mental health component to her symptoms with anxiety and insomnia. See discharge instructions for further discussion. Initial ECG Impression Date: May 19, 2022 Initial ECG Impression Time: 10:26 Initial ECG Rate: 67 Initial ECG Rhythm: Normal Sinus Initial ECG Intervals: Normal Initial ECG Impression: Normal Comment Normal sinus rhythm with no ST elevation or depression. No abnormal intervals or axis deviation. Diagnostic Imaging Diagonstic Imaging: Xray Plain Films/CT/US/NM/MRI: chest Comments NAME: TAMIA ACHARYA MED REC#: [id number] PT STATUS: REG ER : 1985 PHYSICIAN: JOSE DAVID CARBONE MD ADMIT DATE: 05/19/22/ER Signed Date of Exam:05/19/22 CHEST 1 VIEW, AP/PA ONLY CHEST 1 VIEW, AP/PA ONLY Indication: Chest pain. Comparison: 07/01/2012 Findings: No focal airspace disease in the visualized lungs. No pleural effusion or pneumothorax. Normal cardiomediastinal silhouette. Impression: 1. No acute cardiopulmonary process by portable radiography. Dictated by: Dictated on workstation # [id number] Dict: 05/19/22 1141 Trans: 05/19/22 1141 [facility] [id number] Interpreted by: ANDREA MCDONOUGH MD Electronically signed by: ANDREA MCDONOUGH MD 05/19/22 1141 Departure Impression Primary Impression: Atypical chest pain Additional Impressions: Anxiety Insomnia Qualified Codes: G47.00 - Insomnia, unspecified Globus pharyngeus Muscle tension pain Disposition: HOME, SELF-CARE Condition: Improved Departure-Patient Inst. Decision time for Depature: 13:20 Referrals: [facility] (PCP/Family) Primary Care Physician Patient Instructions: Anxiety, Adult ED, Chest Pain That Is Not Caused by the Heart (DC), Insomnia Add. Discharge Instructions: Follow-up with your primary care provider soon as possible. For insomnia you may try the Seroquel as prescribed. If the dose is insufficient, work with your primary care provider to adjust dosing. Do not mix with other sleep aids until otherwise discussed with your doctor. Focus on healthy means of stress reduction and coping. This may include light exercise, healthy eating, conversation with supportive people, counseling, etc. Drink plenty of clear liquids to stay well-hydrated. For muscle pain you may try gentle heat such as a heating pad on low or a warm bath or shower. You may use Tylenol (acetaminophen) up to 1000 mg every 6 hours as needed for musculoskeletal pain. Add ibuprofen up to 600 mg every 6 hours as needed for additional pain relief. Take ibuprofen with food or milk to avoid stomach upset. If you are concerned about acid reflux as a possible cause for your throat sensation (globus pharyngeus) you may try taking an antacid medication such as Pepcid (famotidine) 20 mg twice daily or omeprazole 20 mg daily. These can be purchased [id number]. Return to care if you have worsening symptoms despite following these instructions. All discharge instructions reviewed with patient and/or family. Voiced understanding. Scripts Quetiapine Fumarate (Seroquel) 25 Mg Tablet 25 MG PO HS, #10 TAB Prov: JOSE DAVID CARBONE MD 05/19/22 Copy Copies To 1: [facility] JOSE DAVID CARBONE MD May 19, 2022 13:25
[2022-05-19] MEDS ORDERED: KETOROLAC 30 MG/ML VIAL IVP ONE (13:30)
[2022-05-19] MEDS ORDERED: ORPHENADRINE 60 MG/2 ML (NORFLEX) AMP (ED ONLY) IV ONE (13:30)
[2022-05-19 14:46] VITALS: BP 85/88
== END 2022-05-19 14:46 | disposition home or self-care (01) ==
LOC: EDUNIT# 10:17 → ER 10:18
DX: R07.89 Other chest pain (principal); F41.9 Anxiety disorder, unspecified; G47.00 Insomnia, unspecified; R09.89 Other specified symptoms and signs involving the circulatory and respiratory systems; M79.18 Myalgia, other site; F17.210 Nicotine dependence, cigarettes, uncomplicated
CPT/HCPCS: 36415; 71045; 80053; 83735; 83874; 84443; 84484; 84703; 85025; 85610; 85730; 93005

== ENCOUNTER 2022-10-22 09:27 | Emergency (ER) | payer OTHER ==
[~2022-10-22 09:27] MED LIST changes: +QUET25TA PO
[2022-10-22] MEDS ORDERED: morphine INJ 10 MG/ML 1ML (SYR OR VIAL) IVP STA (09:57)
[2022-10-22] MEDS ORDERED: ONDANSETRON 4 MG/2 ML (SDV) Z0FRAN IVP ONE (10:00)
[2022-10-22] MEDS ORDERED: ORPHENADRINE 60 MG/2 ML (NORFLEX) AMP (ED ONLY) IV ONE (10:00)
--- NOTE | 2022-10-22 10:04 | ED Back Pain ---
General Chief Complaint: Lower Extremity Stated Complaint: RT SIDE HIP PAIN Nursing Triage Note: PT AMB TO RM 5 WITH C/O R HIP PAIN THAT RADIATES DOWN LEG TO BIG TOE FOR THE LAST 2 DAYS. PT HAS HAD HIP PAIN FOR ABOUT 6 MONTHS. PT TOOK IBUPROFEN AROUND 0700 THIS AM Source of Information: Patient Exam Limitations: No Limitations History of Present Illness Date Seen by Provider: Oct 22, 2022 Time Seen by Provider: 09:50 Initial Comments Patient is a 37-year-old female who presents to the emergency room with a chief complaint of low back pain and severe right hip pain radiating down the right leg to her right great toe. Patient states that she has had intermittent back pain and hip pain for the last 9 years since she had her son. For the last 6 months it has been intensifying and over the last 3 days she has developed a "electric shock" like pain that radiates to her foot with severe rectal pain when she goes to the bathroom. Patient did take some ibuprofen this morning. She still has discomfort. She is quite anxious and tearful. She denies incontinence. She states she is able to hold onto her urine. Denies any back injuries in her past. No prior back surgeries. She is occasionally a smoker. She is on no prescribed daily medications. On Depo-Provera for the last 9 years. Does not have menstrual cycles. Timing/Duration: 2-3 Days (worsening intensity) Severity: Severe Pain/Injury Location: Lower Extremity (right ip and leg) Radiation: Buttocks Modifying Factors: Improves With Other (laying supine worsening pain; sitting up improves pain) Associated Symptoms: muscle spasms (right buttock), numbness in legs/feet (right), tingling in legs/feet, sensory/motor loss (right), lower back pain; No loss of bladder control, No loss of bowel control Allergies and Home Medications Allergies Coded Allergies: NKANo Known Allergies (Unverified Allergy, Mild, 01/01/09) No Known Drug Allergies (Verified , 04/30/08) Patient Home Medication List Home Medication List Reviewed: Yes Gabapentin (Neurontin) 300 Mg Capsule, 300 MG PO BID Prescribed by: LAZARO CROFT on 10/22/22 1126 Hydrocodone/Acetaminophen (Hydrocodone-Acetamin 5-325 mg) 1 Each Tablet, 1 TAB PO Q6H PRN for PAIN-BREAKTHROUGH Prescribed by: JOSE DAVID FREED on 08/19/20 1554 Methocarbamol (Methocarbamol) 750 Mg Tablet, 750 MG PO Q8H Prescribed by: LAZARO CROFT on 10/22/22 1126 Metronidazole (Flagyl) 500 Mg Tablet, 500 MG PO BID Prescribed by: JOSE DAVID FREED on 08/19/20 1553 Quetiapine Fumarate (Seroquel) 25 Mg Tablet, 25 MG PO HS Prescribed by: JOSE DAVID FREED on 05/19/22 1323 Review of Systems Constitutional: see HPI EENTM: no symptoms reported Respiratory: no symptoms reported Cardiovascular: no symptoms reported Gastrointestinal: no symptoms reported Genitourinary: no symptoms reported Musculoskeletal: back pain Skin: no symptoms reported Psychiatric/Neurological: Numbness (right leg to great toe - intense great toe pain), Weakness (right leg (she thinks due to pain)) Past Llzhavr-Cccvbb-Dfccri Hx Patient Social History Tobacco Use?: Yes Tobacco type used: Cigarettes Smoking Status: Current Someday Smoker Substance use?: No Alcohol Use?: Yes Pt feels they are or have been: No Immunizations Up To Date Tetanus Booster (TDap): Unknown PED Vaccines UTD: No Influenza Vaccine Up-to-Date: No; Not Current First/Initial COVID19 Vaccinat: 2020 Second COVID19 Vaccination Ervin: 2020 Seasonal Allergies Seasonal Allergies: No Past Medical History Surgery/Hospitalization HX: ANXIETY SURGERY WISDOM TEETH , TONSILS, D&C Surgeries: Yes (WISDOM TEETH, D&C X2) Adenoidectomy, Tonsillectomy Respiratory: No Cardiac: No Neurological: No Reproductive Disorders: No Sexually Transmitted Disease: Yes HIV/AIDS: No Kidney Infection Gastrointestinal: No Musculoskeletal: No Endocrine: No Cancer: No Psychosocial: Yes Anxiety Integumentary: No Eczema Blood Disorders: No Adverse Reaction/Blood Tranf: No Family Medical History No Pertinent Family Hx Physical Exam Vital Signs Vital Signs - First Documented 10/22/22 09:36 Temp 36.7 Pulse 84 Resp 18 B/P (MAP) 155/109 (124) Capillary Refill : Height, Weight, BMI Height: 5'6" Weight: 130lbs. oz. 58.995504ji; 25.00 BMI Method:Stated General Appearance: WD/WN, Anxious, Mild Distress (tearful) HEENT: PERRL/EOMI Neck: Normal Inspection Cardiovascular: Regular Rate, Rhythm Respiratory: Lungs Clear, Normal Breath Sounds, No Accessory Muscle Use, No Respiratory Distress Gastrointestinal: Non Tender, Soft Back: Normal Inspection, Vertebral Tenderness (from about L2 distal into gluteal cleft. some tenderness to palpation right medial buttock. no saddle anesthesia. weak SLR on the right that does intensify pain.) Extremity: Normal Capillary Refill, Normal Inspection, No Pedal Edema, Other (distal pulses intact RLE; diminished sensation right leg) Neurologic/Psychiatric: Alert, Oriented x3, Depressed Affect (tearful); No Motor Weakness; Sensory Deficit Skin: Normal Color, Warm/Dry Progress/Results/Core Measures Results/Orders My Orders Orders - LAZARO CROFT MD Ed Iv/Invasive Line Start (10/22/22 09:57) Mri Lumbar Spine W/O Contrast (10/22/22 09:57) Morphine Injection (Morphine Injection (10/22/22 09:57) Orphenadrine Inj (Ed Only) (Norflex Inje (10/22/22 10:00) Ondansetron Injection (Zofran Injectio (10/22/22 10:00) Dexamethasone Injection (Decadron Injec (10/22/22 10:00) Ketorolac Injection (Toradol Injection) (10/22/22 12:00) Medications Given in ED Current Medications Medications Dose Ordered Sig/Conner Route Start Time Stop Time Status Last Admin Dose Admin Dexamethasone Sodium Phosphate 8 mg ONCE ONCE IV 10/22/22 10:00 10/22/22 10:01 DC 10/22/22 10:17 8 MG Ondansetron HCl 4 mg ONCE ONCE IVP 10/22/22 10:00 10/22/22 10:01 DC 10/22/22 10:16 4 MG Orphenadrine Citrate 60 mg ONCE ONCE IV 10/22/22 10:00 10/22/22 10:01 DC 10/22/22 10:16 60 MG Vital Signs/I&O 10/22/22 09:36 Temp 36.7 Pulse 84 Resp 18 B/P (MAP) 155/109 (124) Blood Pressure Mean: 124 Progress Progress Note : Time: 11:20 Progress Note Patient seen and examined by me. Exam today includes physical exam with MRI of the lumbar spine. Physical exam pertinent for well-developed well-nourished female in mild distress due to pain, she is tearful and upset. Exam demonstrate s tenderness in the lumbar spine into the right buttock. She endorses numbness to the right lower extremity and rectal pain. No saddle anesthesia. Normal strength in the bilateral lower extremities. DTRs 1+ bilateral patella. Abdominal exam benign, lungs are clear heart is regular. Differential diagnosis based on history and physical, radiculopathy secondary to bulging disc, impending cauda equina syndrome, neuropathic pain, musculoskeletal pain. Radiology interpretation of the MRI of the lumbar spine reveals no bulging disks or foraminal stenosis. No pathologic findings to explain her right hip and back pain and right leg pain. Patient was treated in the emergency department with IV Decadron 8 mg, 4 of morphine, 60 of Norflex IV and Zofran 4 mg. She achieved significant relief with these medications. We will start the patient on a Medrol Dosepak as well as muscle relaxers and some pain medicine. Recommended close follow-up with her primary care physician. No concern at this time for impending cauda equina syndrome. The pain is reproducible, it is radiating this may be some neuropathic pain not necessarily radicular. The patient did advise her nurse LAURA Hollingsworth that the pain seemed to intensify after her last Depo shot 6 months ago. Patient did not advise any of this information when I initially saw her. She has no clinical or objective findings to warrant further studies from the emergency department. All questions are sought and answered. Patient is improved at discharge. Diagnostic Imaging Diagonstic Imaging: MRI Plain Films/CT/US/NM/MRI: other (lumbar spine) Comments [facility] [place], [place] NAME: TAMIA ACHARYA [facility] REC#: [id number] PT STATUS: REG ER : 1985 PHYSICIAN: LAZARO CROFT MD ADMIT DATE: 10/22/22/ER Draft Date of Exam:10/22/22 MRI LUMBAR SPINE W/O CONTRAST PROCEDURE: MRI lumbar spine without contrast. TECHNIQUE: Multiplanar, multisequence MRI of the lumbar spine was performed without contrast. INDICATION: Low back pain with right hip radiculopathy. COMPARISON: 04/01/2021. FINDINGS: 5 lumbar type vertebral bodies are visualized with the last well-formed disc space designated L5-S1. No acute fracture or dislocation is seen in the lumbar spine. Alignment is anatomic. Vertebral body heights and disc spaces are well-maintained. The bone marrow signal is normal. The conus terminates at the L1 level. No masses are seen associated with the conus or nerve roots of the cauda equina. No epidural collections are identified. No significant degenerative changes are seen in the lumbar spine. No large disc bulges. No high-grade spinal canal or foraminal stenosis. Paravertebral soft tissues are unremarkable. IMPRESSION: 1. No acute fracture or dislocation in the lumbar spine. 2. No significant degenerative changes in the lumbar spine. No large disc bulges. No high-grade spinal canal or foraminal stenosis. Dictated on workstation # [id number] Dict: 10/22/22 1110 Trans: 10/22/22 1113 CVB [id number] Interpreted by: NGOC JORDAN DO Electronically signed by: Departure Impression Primary Impression: Neuropathic pain of lower extremity Qualified Codes: M79.2 - Neuralgia and neuritis, unspecified Disposition: 01 HOME, SELF-CARE Condition: Improved Departure-Patient Inst. Decision time for Depature: 11:19 Referrals: KEYSHA SHARMA APRN (PCP/Family) Primary Care Physician Patient Instructions: Peripheral Neuropathy (DC) Add. Discharge Instructions: Gabapentin 300mg twice a day. Methocarbamol (muscle relaxer) 1 every 8 hours as needed for spasm. Over the counter Lidocaine patches to the area of pain as well - please follow packaging instructions. Warm/cool compresses may help the area of your pain. You can take clbn-tnk-auulreo ibuprofen 3 tablets which is 600 mg 3 times a day for pain. Always take ibuprofen with food. Please follow-up with your primary care provider and return to the emergency department for any new, concerning or emergent complaints. Scripts Methocarbamol (Methocarbamol) 750 Mg Tablet 750 MG PO Q8H for Back Pain, #10 TAB Prov: LAZARO CROFT MD 10/22/22 Gabapentin (Neurontin) 300 Mg Capsule 300 MG PO BID, #20 CAP Prov: LAZARO CROFT MD 10/22/22 Work/School Note: Work Release Form Date Seen in the Emergency Department: Oct 22, 2022 Return to Work: Oct 24, 2022 LAZARO CROFT MD Oct 22, 2022 10:04
--- NOTE | 2022-10-22 11:13 | Diagnostic Imaging Report ---
PROCEDURE: MRI lumbar spine without contrast. TECHNIQUE: Multiplanar, multisequence MRI of the lumbar spine was performed without contrast. INDICATION: Low back pain with right hip radiculopathy. COMPARISON: 04/01/2021. FINDINGS: 5 lumbar type vertebral bodies are visualized with the last well-formed disc space designated L5-S1. No acute fracture or dislocation is seen in the lumbar spine. Alignment is anatomic. Vertebral body heights and disc spaces are well-maintained. The bone marrow signal is normal. The conus terminates at the L1 level. No masses are seen associated with the conus or nerve roots of the cauda equina. No epidural collections are identified. No significant degenerative changes are seen in the lumbar spine. No large disc bulges. No high-grade spinal canal or foraminal stenosis. Paravertebral soft tissues are unremarkable. IMPRESSION: 1. No acute fracture or dislocation in the lumbar spine. 2. No significant degenerative changes in the lumbar spine. No large disc bulges. No high-grade spinal canal or foraminal stenosis. Dictated by: Dictated on workstation # [id number]
[2022-10-22] MEDS ORDERED: GABA300C PO (11:26)
[2022-10-22] MEDS ORDERED: METH-732 PO (11:26)
[2022-10-22] MEDS ORDERED: KETOROLAC 30 MG/ML VIAL IVP ONE (12:00)
[2022-10-22 12:33] VITALS: BP 158/93
== END 2022-10-22 12:37 | disposition home or self-care (01) ==
LOC: EDUNIT# 09:27 → ER 09:29
DX: M79.2 Neuralgia and neuritis, unspecified (principal); M54.50 Low back pain, unspecified; M79.18 Myalgia, other site; F17.210 Nicotine dependence, cigarettes, uncomplicated
CPT/HCPCS: 72148

== ENCOUNTER 2023-01-26 21:20 | Emergency (ER) | payer OTHER ==
[~2023-01-26] VITALS: Ht 165 cm; Wt 72.5 kg
[~2023-01-26 21:20] MED LIST changes: +GABA300C PO; +METH-732 PO
--- NOTE | 2023-01-26 21:38 | ED General ---
General Stated Complaint: SPIDER BITE Source of Information: Patient Exam Limitations: No Limitations (AILYN SHANE) History of Present Illness Date Seen by Provider: Jan 26, 2023 Time Seen by Provider: 21:36 Initial Comments Patient is a 37-year-old female who presents the ED with potential spider bite to her left buttock. She Noted some pain 3 days ago. She reported a small area of redness. This redness has spread to her left buttock about the size of a so ftball. She noted a area of bruising to her left lower calf and two areas of bruising around her neck. Denies of any specific injury. She states she was bit by a tick about a month ago to her right upper abdomen. She had no redness or swelling or rash after the tick bite. She denies of any fever, chills, nausea, vomiting, diarrhea, joint pain. She applied topical Benadryl cream without much improvement. Patient denies of any blood disorders, history of autoimmune diseases (AILYN SHANE) Allergies and Home Medications Allergies Coded Allergies: NKANo Known Allergies (Unverified Allergy, Mild, 01/01/09) No Known Drug Allergies (Verified , 04/30/08) Patient Home Medication List Home Medication List Reviewed: Yes (AILYN SHANE) Cephalexin (Cephalexin) 500 Mg Tablet, 500 MG PO QID Prescribed by: HITESH MIRANDA on 01/26/232222 Gabapentin (Neurontin) 300 Mg Capsule, 300 MG PO BID Prescribed by: LAZARO CROFT on 10/22/22 1126 Hydrocodone/Acetaminophen (Hydrocodone-Acetamin 5-325 mg) 1 Each Tablet, 1 TAB PO Q6H PRN for PAIN-BREAKTHROUGH Prescribed by: JOSE DAVID FREED on 08/19/20 1554 Methocarbamol (Methocarbamol) 750 Mg Tablet, 750 MG PO Q8H Prescribed by: LAZAOR CROFT on 10/22/22 1126 Metronidazole (Flagyl) 500 Mg Tablet, 500 MG PO BID Prescribed by: JOSE DAVID FREED on 08/19/20 1553 Quetiapine Fumarate (Seroquel) 25 Mg Tablet, 25 MG PO HS Prescribed by: JOSE DAVID FREED on 05/19/22 1323 Review of Systems Review of Systems Constitutional: No chills, No malaise, No weakness EENTM: No ear pain, No blurred vision, No double vision Respiratory: No cough, No dyspnea on exertion Cardiovascular: No chest pain Gastrointestinal: No abdominal pain, No diarrhea, No nausea, No vomiting Genitourinary: No decreased output, No discharge, No dysuria, No frequency Musculoskeletal: No back pain, No joint pain; muscle pain Skin: change in color (AILYN SHANE) All Other Systems Reviewed Negative Unless Noted: Yes (AILYN SHANE) Past Laiguzq-Avggnq-Hskced Hx Immunizations Up To Date Tetanus Booster (TDap): Unknown PED Vaccines UTD: No First/Initial COVID19 Vaccinat: 2020 Second COVID19 Vaccination Ervin: 2020 (AILYN SHANE) Seasonal Allergies Seasonal Allergies: No (AILYN SHANE) Past Medical History Surgery/Hospitalization HX: ANXIETY SURGERY WISDOM TEETH , TONSILS, D&C Surgeries: Yes (WISDOM TEETH, D&C X2) Adenoidectomy, Tonsillectomy Respiratory: No Cardiac: No Neurological: No Reproductive Disorders: No Sexually Transmitted Disease: Yes HIV/AIDS: No Kidney Infection Gastrointestinal: No Musculoskeletal: No Endocrine: No Cancer: No Psychosocial: Yes Anxiety Integumentary: No Eczema Blood Disorders: No Adverse Reaction/Blood Tranf: No (AILYN SHANE) Family Medical History No Pertinent Family Hx (AILYN SHANE) Physical Exam Vital Signs Vital Signs - First Documented 01/26/23 21:27 Temp 36.3 Pulse 99 Resp 20 B/P (MAP) 187/118 (141) Pulse Ox 98 O2 Delivery Room Air (KORY,KWAKU K DO) Vital Signs Capillary Refill : (AILYN SHANE) Height, Weight, BMI Height: 5'6" Weight: 130lbs. oz. 58.847471hm; 25.00 BMI Method:Stated General Appearance: No Apparent Distress, WD/WN Eyes: Bilateral Eye Normal Inspection, Bilateral Eye PERRL, Bilateral Eye EOMI HEENT: PERRL/EOMI, TMs Normal, Normal ENT Inspection, Pharynx Normal Neck: Full Range of Motion, Normal Inspection, Non Tender, Supple Respiratory: Chest Non Tender, Lungs Clear, Normal Breath Sounds, No Accessory Muscle Use, No Respiratory Distress Cardiovascular: Regular Rate, Rhythm, No Edema, No Gallop, No JVD, No Murmur Gastrointestinal: Normal Bowel Sounds, No Organomegaly, No Pulsatile Mass, Non Tender Back: Normal Inspection, No CVA Tenderness, No Vertebral Tenderness Extremity: Other (Nickel sized bruising to the left posterior calf. Dime sized bruising around the upper chest without tenderness. Golf size erythema to the left buttock with a small nodule.) Neurologic/Psychiatric: Alert, Oriented x3, No Motor/Sensory Deficits, Normal Mood/Affect, manager assurance II-XII Norm as Tested (AILYN SHANE) Progress/Results/Core Measures Suspected Sepsis SIRS Temperature: Pulse: Respiratory Rate: Laboratory Tests 01/26/23 21:40: White Blood Count 6.6 Blood Pressure / Mean: Laboratory Tests 01/26/23 21:40: Creatinine 0.89, INR Comment 0.9, Platelet Count 214, Total Bilirubin 0.6 (AILYN SHANE) Results/Orders Lab Results Laboratory Tests Test 01/26/23 21:40 Range/Units White Blood Count 6.6 4.3-11.0 10^3/uL Red Blood Count 5.63 H 3.80-5.11 10^6/uL Hemoglobin 18.9 H 11.5-16.0 g/dL Hematocrit 54 H 35-52 % Mean Corpuscular Volume 96 80-99 fL Mean Corpuscular Hemoglobin 34 25-34 pg Mean Corpuscular Hemoglobin Concent 35 32-36 g/dL Red Cell Distribution Width 12.8 10.0-14.5 % Platelet Count 214 130-400 10^3/uL Mean Platelet Volume 8.6 L 9.0-12.2 fL Immature Granulocyte % (Auto) 1 % Neutrophils (%) (Auto) 48 42-75 % Lymphocytes (%) (Auto) 35 12-44 % Monocytes (%) (Auto) 14 H 0-12 % Eosinophils (%) (Auto) 1 0-10 % Basophils (%) (Auto) 1 0-10 % Neutrophils # (Auto) 3.2 1.8-7.8 10^3/uL Lymphocytes # (Auto) 2.3 1.0-4.0 10^3/uL Monocytes # (Auto) 0.9 0.0-1.0 10^3/uL Eosinophils # (Auto) 0.1 0.0-0.3 10^3/uL Basophils # (Auto) 0.1 0.0-0.1 10^3/uL Immature Granulocyte # (Auto) 0.0 0.0-0.1 10^3/uL Prothrombin Time 12.3 12.2-14.7 SEC INR Comment 0.9 0.8-1.4 Activated Partial Thromboplast Time 24 24-35 SEC Sodium Level 138 135-145 MMOL/L Potassium Level 4.1 3.6-5.0 MMOL/L Chloride Level 105 98-107 MMOL/L Carbon Dioxide Level 20 L 21-32 MMOL/L Anion Gap 13 5-14 MMOL/L Blood Urea Nitrogen 8 7-18 MG/DL Creatinine 0.89 0.60-1.30 MG/DL Estimat Glomerular Filtration Rate 85 BUN/Creatinine Ratio 9 Glucose Level 107 H 70-105 MG/DL Calcium Level 10.1 8.5-10.1 MG/DL Corrected Calcium 8.5-10.1 MG/DL Total Bilirubin 0.6 0.1-1.0 MG/DL Aspartate Amino Transf (AST/SGOT) 48 H 5-34 U/L Alanine Aminotransferase (ALT/SGPT) 62 H 0-55 U/L Alkaline Phosphatase 76 40-136 U/L C-Reactive Protein High Sensitivity 0.17 0.00-0.50 MG/DL Total Protein 7.5 6.4-8.2 GM/DL Albumin 4.6 H 3.2-4.5 GM/DL (KORY,KWAKU K DO) Medications Given in ED Current Medications Medications Dose Ordered Sig/Conner Route Start Time Stop Time Status Last Admin Dose Admin Cephalexin HCl 500 mg ONCE ONCE PO 01/26/23 21:45 01/26/23 21:46 DC 01/26/23 22:34 500 MG (KORY,KWAKU K DO) Vital Signs/I&O 01/26/23 01/26/23 21:27 22:37 Temp 36.3 Pulse 99 90 Resp 20 20 B/P (MAP) 187/118 (141) 135/103 Pulse Ox 98 96 O2 Delivery Room Air Room Air (KORY,KWAKU K DO) Vital Signs/I&O Capillary Refill : (SHANE,AILYN A PA) Departure Communication (PCP) Reviewed previous ER visits, H&P, lab testing. Patient is concern for potential spider bite to her left buttock. Noted some pain and discomfort 3 days ago. On exam she has a softball sized area of erythema. Area was marked. Very small area of central induration without evidence of fluctuant mass. Concern for cellulitis. She did receive a dose of Keflex. She does not appear toxic. She is concern for an area of bruising to her left calf and bilateral upper chest. No tenderness to palpate. She denies of any specific injury. Discussed CBC, CMP, coags. She was bitten by a tick in her right upper chest a little over a month ago. Did add tick panel. Unlikely secondary to a tick bite however will wait to treat until results. Patient CBC showed normal white blood count. Normal platelets. Normal coags. Slight elevated liver enzymes. Soft abdomen. Continue monitoring the bruising. Nonspecific. No evidence suggesting ITP or DIC. Will discharge with Keflex. Warm compresses. Continue monitoring. If increased redness or swelling to return back to ED. Anti-inflammatories for pain. Patient agrees with plan of action. Follow-up your PCP in 2 days for reevaluation (AILYN SHANE) Impression Primary Impression: Cellulitis Additional Impression: Bruising Disposition: 01 HOME, SELF-CARE Condition: Stable Departure-Patient Inst. Decision time for Depature: 22:16 (AILYN SHANE) Referrals: TEDDY KOVACS MD (PCP/Family) Primary Care Physician Patient Instructions: Cellulitis (Skin Infection), Adult (DC) Add. Discharge Instructions: Take Tylenol or ibuprofen for pain. Take antibiotics as prescribed. If incr eased redness or swelling to return back to ED. Scripts Cephalexin (Cephalexin) 500 Mg Tablet 500 MG PO QID for 7 Days, #28 TAB Prov: AILYN SHANE 01/26/23 Work/School Note: Work Release Form Date Seen in the Emergency Department: Jan 26, 2023 Return to Work: Jan 29, 2023 ATTENDING PHYSICIAN NOTE: I WAS PHYSICALLY PRESENT ER PHYSICIAN BUT I WAS NOT INVOLVED IN ANY DECISION MAKING OR ANY CARE OF THIS PATIENT AND I AM NOT COLLABORATING PHYSICIAN (KORY,AILYN STRANGE Jan 26, 2023 21:38 KWAKU HORN DO Jan 27, 2023 04:59
[2023-01-26] MEDS ORDERED: CEPHALEXIN 250 MG (KEFLEX) CAP PO ONE (21:45)
[2023-01-26 21:52] LABS: BASOPHILS # (AUTO) 0.1 10^3/uL (0.0-0.1); BASOPHILS % (AUTO) 1 % (0-10); EOSINOPHILS # (AUTO) 0.1 10^3/uL (0.0-0.3); EOSINOPHILS % (AUTO) 1 % (0-10); HEMATOCRIT 54 % (35-52); HEMOGLOBIN 18.9 g/dL (11.5-16.0); LYMPHOCYTES # (AUTO) 2.3 10^3/uL (1.0-4.0); LYMPHOCYTES % (AUTO) 35 % (12-44); MEAN CORPUSCULAR HEMOGLOBIN 34 pg (25-34); MEAN CORPUSCULAR HGB CONC 35 g/dL (32-36); MEAN CORPUSCULAR VOLUME 96 fL (80-99); MEAN PLATELET VOLUME 8.6 fL (9.0-12.2); MONOCYTES # (AUTO) 0.9 10^3/uL (0.0-1.0); MONOCYTES % (AUTO) 14 % (0-12); NEUTROPHILS # (AUTO) 3.2 10^3/uL (1.8-7.8); NEUTROPHILS % (AUTO) 48 % (42-75); PLATELET COUNT 214 10^3/uL (130-400); WHITE BLOOD COUNT 6.6 10^3/uL (4.3-11.0)
[2023-01-26 22:07] LABS: ALANINE AMINOTRANSFERASE 62 U/L (0-55); ALBUMIN 4.6 GM/DL (3.2-4.5); ALKALINE PHOSPHATASE 76 U/L (40-136); BILIRUBIN,TOTAL 0.6 MG/DL (0.1-1.0); BUN/CREATININE RATIO 9; CALCIUM 10.1 MG/DL (8.5-10.1); CARBON DIOXIDE 20 MMOL/L (21-32); CHLORIDE 105 MMOL/L (98-107); CREATININE SERUM 0.89 MG/DL (0.60-1.30); GFR ESTIMATED 85; GLUCOSE 107 MG/DL (70-105); POTASSIUM 4.1 MMOL/L (3.6-5.0); SODIUM 138 MMOL/L (135-145); TOTAL PROTEIN 7.5 GM/DL (6.4-8.2)
[2023-01-26 22:12] LABS: INR 0.9 (0.8-1.4); PROTHROMBIN TIME PATIENT 12.3 SEC (12.2-14.7)
[2023-01-26] MEDS ORDERED: CEPH500T PO ×2 (22:16→22:23)
[2023-01-26 22:37] VITALS: BP 135/103
== END 2023-01-26 22:38 | disposition home or self-care (01) ==
LOC: EDUNIT# 21:20 → ER 21:22
DX: R05.9 Cough, unspecified (principal)
CPT/HCPCS: 36415; 80053; 85025; 85610; 85730; 86141; 86618; 86666; 86668; 86757; 99283

== ENCOUNTER 2023-03-04 15:38 | Emergency (ER) | payer SELFPAY ==
[~2023-03-04] VITALS: Ht 165.1 cm; Wt 68.0 kg
[~2023-03-04 15:38] MED LIST changes: +CEPH500T PO
[2023-03-04] MEDS ORDERED: dexAMETHasone INJ 10 MG/ML 1 ML VIAL IV ONE (16:00)
[2023-03-04] MEDS ORDERED: NS IV 1000 ML 1,000 ML IV SCH (16:00)
--- NOTE | 2023-03-04 16:08 | ED General ---
General Stated Complaint: SEVERE COVID ISSUES, DIAGNOSED Source of Information: Patient Exam Limitations: No Limitations History of Present Illness Date Seen by Provider: Mar 04, 2023 Time Seen by Provider: 16:02 Initial Comments 37-year-old female patient presents to the emergency department with headache and myalgias, nausea and overall not feeling well. She states she started with a fever Tuesday felt okay Tuesday and then Tuesday just started feeling horrible all over with viral type symptoms. She then took a home COVID test which was positive. She is currently on day 5 of symptoms total, if she has been quarantined tomorrow would be her last day. She states she is taking ibuprofen and Tylenol, staying hydrated. She is not taking any significant bhzx-xfb-nfusatl cough or cold medication. Long discussion regarding vitamin supplementation with NAC, multivitamin containing selenium and zinc, vitamins A see any. Advised Epsom salt soaks for muscle aches secondary to magnesium absorption. Patient voices understanding and agrees. We will treat symptoms with 1 L normal saline and 10 mg of Decadron IV as she had 600 mg of ibuprofen roughly 3 hours ago and I did not feel at that dosing with Toradol at this time would be appropriate. Patient voices understanding and agrees Timing/Duration: 5-6 Days Severity: Moderate Associated Systoms: Fever/Chills, Headaches, Malaise, Nausea/Vomiting, Other (myalgias) Allergies and Home Medications Allergies Coded Allergies: NKANo Known Allergies (Unverified Allergy, Mild, 01/01/09) No Known Drug Allergies (Verified , 04/30/08) Patient Home Medication List Home Medication List Reviewed: Yes Aspirin/Acetaminophen/Caffeine (Excedrin Extra Strength Caplet) 250 Mg-250 Mg-65 Mg Tablet, 1 EACH PO BID Prescribed by: Jeferson Alanis on 03/04/23 1612 Cephalexin (Cephalexin) 500 Mg Tablet, 500 MG PO QID Prescribed by: HITESH MIRANDA on 01/26/23 2223 Gabapentin (Neurontin) 300 Mg Capsule, 300 MG PO BID Prescribed by: LAZARO CROFT on 10/22/22 1126 Hydrocodone/Acetaminophen (Hydrocodone-Acetamin 5-325 mg) 1 Each Tablet, 1 TAB PO Q6H PRN for PAIN-BREAKTHROUGH Prescribed by: JOSE DAVID FREED on 08/19/20 1554 Methocarbamol (Methocarbamol) 750 Mg Tablet, 750 MG PO Q8H Prescribed by: LAZARO CROFT on 10/22/22 1126 Metronidazole (Flagyl) 500 Mg Tablet, 500 MG PO BID Prescribed by: JOSE DAVID FREED on 08/19/20 1553 Ondansetron (Ondansetron Odt) 4 Mg Tab.rapdis, 4 MG SL Q4H PRN for NAUSEA/VOMITING Prescribed by: Jeferson Alanis on 03/04/23 1612 Promethazine HCl (Promethazine Tablet) 25 Mg Tablet, 25 MG PO Q6H PRN for headache Prescribed by: Jeferson Alanis on 03/04/23 1612 Quetiapine Fumarate (Seroquel) 25 Mg Tablet, 25 MG PO HS Prescribed by: JOSE DAVID FREED on 05/19/22 1323 Review of Systems Review of Systems Constitutional: chills, fever, malaise EENTM: see HPI Respiratory: No cough, No hemoptysis, No short of breath, No wheezing Cardiovascular: No chest pain, No syncope Gastrointestinal: nausea Genitourinary: no symptoms reported Musculoskeletal: muscle pain, muscle stiffness, muscle cramps Skin: no symptoms reported Psychiatric/Neurological: Headache Hematologic/Lymphatic: No Symptoms Reported Immunological/Allergic: no symptoms reported All Other Systems Reviewed Negative Unless Noted: Yes Past Bphvcsg-Xzrdfm-Uzahft Hx Immunizations Up To Date Tetanus Booster (TDap): Unknown PED Vaccines UTD: No First/Initial COVID19 Vaccinat: 2020 Second COVID19 Vaccination Ervin: 2020 Third COVID19 Vaccination Date: 2020 Seasonal Allergies Seasonal Allergies: No Past Medical History Surgery/Hospitalization HX: ANXIETY SURGERY WISDOM TEETH , TONSILS, D&C Surgeries: Yes (WISDOM TEETH, D&C X2) Adenoidectomy, Tonsillectomy Respiratory: No Cardiac: No Neurological: No Reproductive Disorders: No Sexually Transmitted Disease: Yes HIV/AIDS: No Kidney Infection Gastrointestinal: No Musculoskeletal: No Endocrine: No Cancer: No Psychosocial: Yes Anxiety Integumentary: No Eczema Blood Disorders: No Adverse Reaction/Blood Tranf: No Family Medical History No Pertinent Family Hx Physical Exam Vital Signs Vital Signs - First Documented Capillary Refill : Height, Weight, BMI Height: 5'6" Weight: 130lbs. oz. 58.881978so; 26.00 BMI Method:Stated General Appearance: WD/WN Eyes: Bilateral Eye Normal Inspection, Bilateral Eye PERRL, Bilateral Eye EOMI HEENT: PERRL/EOMI, TMs Normal, Normal ENT Inspection, Pharynx Normal, Moist Mucous Membranes Neck: Full Range of Motion, Normal Inspection, Other (Muscle soreness, no nuchal rigidity) Respiratory: Chest Non Tender, Lungs Clear, Normal Breath Sounds, No Accessory Muscle Use, No Respiratory Distress Cardiovascular: Regular Rate, Rhythm, No Edema Gastrointestinal: Normal Bowel Sounds, Non Tender Back: Normal Inspection, No CVA Tenderness Extremity: Normal Capillary Refill, Normal Inspection Neurologic/Psychiatric: Alert, Oriented x3, No Motor/Sensory Deficits, Normal 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, 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 Skin: Normal Color, Warm/Dry Lymphatic: No Adenopathy Progress/Results/Core Measures Suspected Sepsis SIRS Temperature: Pulse: Respiratory Rate: Blood Pressure / Mean: Results/Orders My Orders Orders - JEFERSON ALANIS DO Dexamethasone Injection (Dexamethasone (03/04/23 16:00) Ed Iv/Invasive Line Start (03/04/23 16:00) Ns Iv 1000 Ml (Ns Iv 1000 Ml) (03/04/23 16:00) Medications Given in ED Current Medications Medications Dose Ordered Sig/Conner Route Start Time Stop Time Status Last Admin Dose Admin Dexamethasone Sodium Phosphate 10 mg ONCE ONCE IV 03/04/23 16:00 03/04/23 16:03 DC 03/04/23 16:17 10 MG Vital Signs/I&O 03/04/23 03/04/23 15:47 15:47 Temp 37.2 Pulse 92 Resp 17 B/P (MAP) 164/118 (133) O2 Delivery Room Air Room Air Capillary Refill : Progress Note : Progress Note TheNo indication for labs at this time as she did have a positive COVID test at home. She is here for symptom control and just headache. Patient given 1 L NS bolus and 10 mg Decadron initially, will re-evaluate. Is to purchase [id number] supplementation discussed to see if this does not alleviate her symptoms. I will also provide prescriptions for Excedrin extra strength, and Phenergan for headache control as well as Zofran for nausea. 1708 patient has completed her Decadron and IV fluids. She states she does feel somewhat better but still has a tension headache and states there is pressure behind her eyes. Carmita option of discharge home with prescription for Phenergan Excedrin and Zofran and patient agrees with this. Offered more treatment here but she would like to go home and try the prescription therapies as well as the nyij-gop-lvafqkn supplementation that we discussed. Advised return for any problems or worsening condition otherwise follow-up with primary care, patient agrees Departure Impression Primary Impression: COVID-19 Additional Impressions: Myalgia Headache Qualified Codes: G44.209 - Tension-type headache, unspecified, not intractable Disposition: HOME, SELF-CARE Condition: Stable Departure-Patient Inst. Referrals: TEDDY KOVACS MD (PCP/Family) Primary Care Physician Patient Instructions: Headache, Adult, Muscle and Bone Pain (DC), COVID-19 overview Scripts Ondansetron (Ondansetron Odt) 4 Mg Tab.rapdis 4 MG SL Q4H PRN for NAUSEA/VOMITING for 10 Days, #40 TAB Prov: JEFERSON ALANIS DO 03/04/23 Aspirin/Acetaminophen/Caffeine (Excedrin Extra Strength Caplet) 250 Mg-250 Mg-65 Mg Tablet 1 EACH PO BID PRN for HEADACHE for 10 Days, #20 TAB Prov: JEFERSON ALANIS DO 03/04/23 Promethazine HCl (Promethazine Tablet) 25 Mg Tablet 25 MG PO Q6H PRN for NAUSEA/VOMITING for 10 Days, #40 TAB Prov: JEFERSON ALANIS DO 03/04/23 JEFERSON ALANIS DO Mar 04, 2023 16:08
[2023-03-04] MEDS ORDERED: PROM25TA14 PO ×2 (16:12→18:11)
[2023-03-04] MEDS ORDERED: ASPI-992 PO ×2 (16:12→18:11)
[2023-03-04] MEDS ORDERED: ONDA4TAB11 SL ×2 (16:12→18:11)
[2023-03-04 17:29] VITALS: BP 129/78
== END 2023-03-04 17:29 | disposition home or self-care (01) ==
LOC: EDUNIT# 15:38 → ER 15:41
DX: U07.1 COVID-19 (principal); R51.9 Headache, unspecified; M79.10 Myalgia, unspecified site; R50.9 Fever, unspecified; R53.81 Other malaise; R11.0 Nausea; Z73.0 Burn-out